=== PATIENT | male | born 1990 | race Hispanic/Latino ===

== ENCOUNTER 2018-07-19 07:59 | Emergency (ER) | payer SELFPAY ==
--- NOTE | 2018-07-19 08:28 | EDPHYS ---
Physician Documentation [facility] Name: Jameel Burk Age: 27 yrs Sex: Male : 1990 Arrival Date: 07/19/2018 Time: 08:04 Bed 13 Private MD: ED Physician Alejandro Chi HPI: 07/19 08:23 This 27 yrs old Male presents to ER via Ambulatory with complaints of Leg Pain.gs 08:23 The patient presents with cellulitis of the left dean. Description: The affected area gs is small, confluent, draining, erythematous, warm. Onset: The symptoms/episode began/occurred 2 day(s) ago, and became worse and became persistent. Possible cause(s): insect sting, spider bite, cmrsa. Associated signs and symptoms: Pertinent positives: drainage, erythema, Pertinent negatives: fever. Modifying factors: the symptoms are aggravated by squeezing the lesion and expressing the contents, touching. Severity of symptoms: At their worst the symptoms were moderate, in the emergency department the symptoms are unchanged. The patient has not experienced similar symptoms in the past. The patient has not recently seen a physician. Historical: - Allergies: 08:12 No Known Allergies; bp - Home Meds: 08:12 None [Active]; bp - PMHx: 08:12 None; bp - Immunization history:: Adult Immunizations up to date. - Social history:: Smoking status: Patient/guardian denies using tobacco. - Ebola Screening: : Patient negative for fever greater than or equal to 101.5 degrees Fahrenheit, and additional compatible Ebola Virus Disease symptoms Patient denies exposure to infectious person Patient denies travel to an Ebola-affected area in the 21 days before illness onset No symptoms or risks identified at this time. ROS: 08:23 All other systems are negative. gs Exam: 08:23 ENT: Nares patent. No nasal discharge, no septal abnormalities noted. Tympanic gs membranes are normal and external auditory canals are clear. Oropharynx with no redness, swelling, or masses, exudates, or evidence of obstruction, uvula midline. Mucous membranes moist. Cardiovascular: Regular rate and rhythm with a normal S1 and S2. No gallops, murmurs, or rubs. Normal PMI, no JVD. No pulse deficits. Respiratory: Lungs have equal breath sounds bilaterally, clear to auscultation and percussion. No rales, rhonchi or wheezes noted. No increased work of breathing, no retractions or nasal flaring. Abdomen/GI: Soft, non-tender, with normal bowel sounds. No distension or tympany. No guarding or rebound. No evidence of tenderness throughout. Neuro: Awake and alert, GCS 15, oriented to person, place, time, and situation. Cranial nerves II-XII grossly intact. Motor strength 5/5 in all extremities. Sensory grossly intact. Cerebellar exam normal. Normal gait. 08:23 Constitutional: The patient appears alert, awake. 08:23 Musculoskeletal/extremity: Circulation is intact in all extremities. 08:23 Skin: cellulitis, that is mild, confluent, on the left dean, small central necrotic center, induration, that is moderate is noted. Vital Signs: 08:12 BP 121 / 84; Pulse 89; Resp 18; Temp 98.7; Pulse Ox 99% ; Weight 70.31 kg; Height 5 ft. bp 7 in. (170.18 cm); 08:12 Body Mass Index 24.28 (70.31 kg, 170.18 cm) bp MDM: 08:22 Patient medically screened. 08:23 Differential diagnosis: abscess, cellulitis, insect bite. Data reviewed: vital signs, nurses notes. Counseling: I had a detailed discussion with the patient and/or guardian regarding: the historical points, exam findings, and any diagnostic results supporting the discharge/admit diagnosis, the need for outpatient follow up. Response to treatment: There is no appreciated change of the patient's symptoms at this time, and as a result, I will discharge patient. Administered Medications: 08:41 Drug: Clindamycin 600 mg Route: PO; jl7 08:41 Follow up: Response: Medication administered at discharge. jl7 Disposition: 07/19/18 08:28 Discharged to Home. Impression: Cellulitis of left lower limb. - Condition is Stable. - Discharge Instructions: Cellulitis, Adult. - Prescriptions for Clindamycin HCl 300 mg Oral Capsule - take 1 capsule by ORAL route every 6 hours for 7 days; 28 capsule. - Medication Reconciliation Form, Thank You Letter, Antibiotic Education, Prescription Opioid Use form. - Follow up: Private Physician; When: 2 - 3 days; Reason: Re-evaluation by your physician. Signatures: Gee Ruiz RN RN jl7 Alejandro Chi MD MD gs Peltier, Brian RN RN bp Corrections: (The following items were deleted from the chart) 08:42 08:28 07/19/2018 08:28 Discharged to Home. Impression: Cellulitis of left lower limb. jl7 Condition is Stable. Forms are Medication Reconciliation Form, Thank You Letter, Antibiotic Education, Prescription Opioid Use. Follow up: Private Physician; When: 2 - 3 days; Reason: Re-evaluation by your physician.
--- NOTE | 2018-07-19 08:28 | ER ---
Nurse's Notes [facility] Name: Jameel Burk Age: 27 yrs Sex: Male : 1990 Arrival Date: 07/19/2018 Time: 08:04 Bed 13 Private MD: Diagnosis: Cellulitis of left lower limb Presentation: 07/19 08:11 Presenting complaint: Patient states: LEG INFECTION SINCE WEDNESDAY. Transition of care: bp patient was not received from another setting of care. Onset of symptoms was July 15, 2018. Risk Assessment: Do you want to hurt yourself or someone else? Patient reports no desire to harm self or others. Initial Sepsis Screen: Does the patient meet any 2 criteria? No. Patient's initial sepsis screen is negative. Does the patient have a suspected source of infection? Yes: Skin breakdown/wound. Care prior to arrival: None. 08:11 Method Of Arrival: Ambulatory bp 08:11 Acuity: WILFRIDO 3 bp Triage Assessment: 08:12 General: Appears in no apparent distress. uncomfortable, slender, Behavior is bp cooperative, appropriate for age, anxious. Pain: Complains of pain in left dean. EENT: No deficits noted. Neuro: Level of Consciousness is awake, alert, obeys commands, Oriented to person, place, time, situation, Appropriate for age. Cardiovascular: No deficits noted. Respiratory: Airway is patent Respiratory effort is even, unlabored, Respiratory pattern is regular, symmetrical. GI: No signs and/or symptoms were reported involving the gastrointestinal system. : No signs and/or symptoms were reported regarding the genitourinary system. Derm: Wound noted left dean. Musculoskeletal: Circulation, motion, and sensation intact. Range of motion: intact in all extremities. Historical: - Allergies: 08:12 No Known Allergies; bp - Home Meds: 08:12 None [Active]; bp - PMHx: 08:12 None; bp - Immunization history:: Adult Immunizations up to date. - Social history:: Smoking status: Patient/guardian denies using tobacco. - Ebola Screening: : Patient negative for fever greater than or equal to 101.5 degrees Fahrenheit, and additional compatible Ebola Virus Disease symptoms Patient denies exposure to infectious person Patient denies travel to an Ebola-affected area in the 21 days before illness onset No symptoms or risks identified at this time. Screenin:15 Abuse screen: Denies threats or abuse. Denies injuries from another. Nutritional jl7 screening: No deficits noted. Tuberculosis screening: No symptoms or risk factors identified. Fall Risk None identified. Assessment: 08:15 General: Appears in no apparent distress. uncomfortable, Behavior is calm, cooperative, jl7 appropriate for age. Pain: Complains of pain in left dean Pain does not radiate. Pain currently is 2 out of 10 on a pain scale. at worst was 8 out of 10 on a pain scale. Quality of pain is described as burning, tingling, Pain began x 4 days Is intermittent, Alleviated by rest, Aggravated by "Touching it.". Neuro: Level of Consciousness is awake, alert, obeys commands, Oriented to person, place, time, situation. Cardiovascular: Patient's skin is warm and dry. Respiratory: Airway is patent Respiratory effort is even, unlabored, Respiratory pattern is regular, symmetrical. GI: No signs and/or symptoms were reported involving the gastrointestinal system. : No signs and/or symptoms were reported regarding the genitourinary system. EENT: No signs and/or symptoms were reported regarding the EENT system. Derm: Skin Reddened, hot to touch area noted to left dean with dark center. Skin is pink, warm \\T\\ dry. Musculoskeletal: No signs and/or symptoms reported regarding the musculoskeletal system. Vital Signs: 08:12 BP 121 / 84; Pulse 89; Resp 18; Temp 98.7; Pulse Ox 99% ; Weight 70.31 kg; Height 5 ft. bp 7 in. (170.18 cm); 08:12 Body Mass Index 24.28 (70.31 kg, 170.18 cm) bp ED Course: 08:04 Patient arrived in ED. mr 08:10 Gee Ruiz, VEDA is Primary Nurse. jl7 08:12 Triage completed. bp 08:12 Arm band placed on. bp 08:13 Alejandro Chi MD is Attending Physician. gs 08:15 Patient has correct armband on for positive identification. Bed in low position. Call jl7 light in reach. Side rails up X 1. 08:41 No provider procedures requiring assistance completed. Patient did not have IV access jl7 during this emergency room visit. Administered Medications: 08:41 Drug: Clindamycin 600 mg Route: PO; jl7 08:41 Follow up: Response: Medication administered at discharge. jl7 Outcome: 08:28 Discharge ordered by . lexi 08:41 Discharged to home ambulatory. [facility] 08:41 Condition: stable 08:41 Discharge instructions given to patient, Instructed on discharge instructions, follow up and referral plans. medication usage, Demonstrated understanding of instructions, follow-up care, medications, Prescriptions given X 1. 08:42 Patient left the ED. jl7 Signatures: Carmen Quinteros Jahala RN RN jl7 Alejandro Chi MD MD gs Peltier, Brian, RN RN bp
[2018-07-19] MEDS ORDERED: CLINDAMYCIN HCL 150 MG CAP ONE (08:45)
== END 2018-07-19 08:42 | disposition home or self-care (01) ==
LOC: ER 07:59
DX: L03.116 Cellulitis of left lower limb (principal)
CPT/HCPCS: 99283